=== PATIENT | male | born 1970 | race Caucasian/White ===

== ENCOUNTER → 2019-04-14 | Outpatient (CLI) | payer BC ==
[2015-01-07 19:12] VITALS: BP 148/86
[~2019-04-14] MED LIST: METF10007 PO; ZOLP10TA PO
--- NOTE | 2019-04-14 09:25 | KCIC ---
CT abdomen and pelvis without contrast 04/14/2019 CLINICAL INDICATION: Progressive left flank pain. COMPARISON: None. TECHNIQUE: Multiple CT images of the abdomen and pelvis were obtained without contrast. *One or more of the following individualized dose reduction techniques were utilized for this examination: 1. Automated exposure control. 2. Adjustment of the mA and/or kV according to patient size. 3. Use of iterative reconstruction technique. FINDINGS: Heart size is normal. Visualized lung bases are clear. The unenhanced contours of the liver, gallbladder, spleen, adrenal glands, pancreas, and kidneys are grossly unremarkable. No hydronephrosis or nephrolithiasis. Abdominal aorta normal in caliber with minimal aortoiliac calcified atheromatous plaque. Small and large bowel loop loops are normal in caliber without obstruction. The appendix is normal in appearance. No abdominal free fluid. No pneumoperitoneum. Partially distended and unopacified urinary bladder, prostate, and seminal vesicles are grossly unremarkable. Partial visualization of vasectomy changes. There are no destructive osseous lesions. IMPRESSION: No hydronephrosis or nephrolithiasis. Electronically signed by: Dallas Woody MD (04/14/2019 9:22 AM) [id number]
== END | disposition home or self-care (01) ==
LOC: KCIC CT 08:33
DX: I70.0 Atherosclerosis of aorta (principal); Z98.52 Vasectomy status
CPT/HCPCS: 74176